=== PATIENT | male | born 1975 | race African-American/Black ===

== ENCOUNTER 2018-10-22 15:30 | Emergency (ER) | payer OTHER ==
[~2018-10-22] VITALS: Ht 170.2 cm; Wt 113.4 kg
== END 2018-10-22 17:26 | disposition home or self-care (01) ==
LOC: ER 15:30 → EDSEX 15:34 → ER 15:34
DX: K64.4 Residual hemorrhoidal skin tags (principal); K62.5 Hemorrhage of anus and rectum